=== PATIENT | female | born 1980 | race Caucasian/White ===

== ENCOUNTER 2020-10-11 23:32 | Emergency (ER) | payer MEDICAID ==
[~2020-10-11] VITALS: Ht 160 cm; Wt 47.7 kg
[2020-10-11] MEDS ORDERED: fentaNYL/PF 50MCG/1 ML 2ML syringe IV ONE (23:50)
[2020-10-11] MEDS ORDERED: ondansetron/PF 4mg/2ml inj IV ONE (23:50)
[2020-10-11] MEDS ORDERED: iohexol 300mg/ml 100ml inj. ONE (23:51)
[2020-10-11 23:56] LABS: BASOPHILS # (AUTO) 0.1 X10'3 (0-0.2); BASOPHILS % (AUTO) 0.6 % (0-1); EOSINOPHILS # (AUTO) 0.2 X10'3 (0-0.9); EOSINOPHILS % (AUTO) 1.4 % (0-6); HEMATOCRIT 39.4 % (35.0-45.0); HEMOGLOBIN 13.3 g/dl (12.0-16.0); LYMPHOCYTES # (AUTO) 2.1 X10'3 (1.1-4.8); LYMPHOCYTES % (AUTO) 15.4 % (21-51); MEAN CORPUSCULAR HEMOGLOBIN 30.3 PG (27.0-31.0); MEAN CORPUSCULAR HGB CONC 33.7 g/dL (33.0-36.5); MEAN CORPUSCULAR VOLUME 90.1 FL (78-98); MEAN PLATELET VOLUME 7.7 FL (7.4-10.4); MONOCYTES % (AUTO) 7.7 % (2-12); NEUTROPHILS % (AUTO) 74.9 % (42-75); PLATELET COUNT 247 X10'3 (140-440); RED BLOOD COUNT 4.37 X10'6 (4.20-5.60); RED CELL DISTRIBUTION WIDTH 12.8 % (11.5-14.5); WHITE BLOOD COUNT 13.4 X10'3 (4.5-11.0)
[2020-10-12 00:01] LABS: HCG SERUM QL NEGATIVE
[2020-10-12 00:07] LABS: ALANINE AMINOTRANSFERASE 19 U/L (12-78); ALBUMIN 3.8 G/DL (3.4-5.0); ALBUMIN/GLOBULIN RATIO 1.2 (1.1-1.5); ALKALINE PHOSPHATASE 78 IU/L (46-116); ANION GAP 10 (8-16); ASPARTATE AMINO TRANSFERASE 15 U/L (10-37); BILIRUBIN,TOTAL 1.1 MG/DL (0.1-1.0); BLOOD UREA NITROGEN 14 MG/DL (7-18); BUN/CREATININE RATIO 21.5 (6.6-38.0); CALCIUM 8.9 MG/DL (8.5-10.1); CHLORIDE 103 MMOL/L (99-107); CREATININE 0.65 MG/DL (0.40-0.90); ETHANOL < 0.010 GM/DL (0.0-0.010); GLUCOSE 116 MG/DL (70-104); POTASSIUM 3.6 MMOL/L (3.5-5.1); SODIUM 138 MMOL/L (135-145); eGFR > 90 ML/MIN
--- NOTE | 2020-10-12 00:13 | NUR ---
TO CT XRAYS COMPLETED
[2020-10-12] MEDS ORDERED: morphine 4 MG/ML inj SYRINge IV ONE (00:45)
[2020-10-12] MEDS ORDERED: ketorolac trometh. 30mg/ml inj. IV ONE (01:15)
[2020-10-12] MEDS ORDERED: HYDR-3965 PO (01:29)
[2020-10-12] MEDS ORDERED: MELO-100 PO (01:29)
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
--- NOTE | 2020-10-12 02:19 | NUR ---
[facility] present in room interviewing pt and her boyfriend. they state there is no case number, but the case is "[id number]."
[2020-10-12 03:14] VITALS: BP 102/59
== END 2020-10-12 03:15 | disposition home or self-care (01) ==
LOC: ER 23:33
DX: S82.102A Unspecified fracture of upper end of left tibia, initial encounter for closed fracture (principal); S92.315A Nondisplaced fracture of first metatarsal bone, left foot, initial encounter for closed fracture; M79.602 Pain in left arm; M25.572 Pain in left ankle and joints of left foot; M25.562 Pain in left knee; Z88.1 Allergy status to other antibiotic agents; Z79.899 Other long term (current) drug therapy; X58.XXXA Exposure to other specified factors, initial encounter; Y93.89 Activity, other specified; Y92.89 Other specified places as the place of occurrence of the external cause; Y99.8 Other external cause status
CPT/HCPCS: 29505; 36415; 70450; 70486; 71045; 71260; 72125; 73590; 73620; 74177; 80053; 80320; 84703; 85025; 85610; 86885; 86900; 86901; 93005; 96374; 96375; 99285; J1885; J2270; J2405; J3010; Q9967

== ENCOUNTER 2022-10-04 19:09 | Emergency (ER) | payer MEDICAID ==
[~2022-10-04] VITALS: Ht 160 cm; Wt 110.0 kg
[~2022-10-04 19:09] MED LIST: MELO-100 PO
[2022-10-04 19:41] VITALS: BP 126/84
== END 2022-10-05 02:30 | disposition left against medical advice (07) ==
LOC: ER 19:09
DX: M25.562 Pain in left knee (principal); Z53.21 Procedure and treatment not carried out due to patient leaving prior to being seen by health care provider
CPT/HCPCS: 73564

== ENCOUNTER 2024-07-18 10:16 | Emergency (ER) | payer MEDICAID ==
[~2024-07-18] VITALS: Ht 162.6 cm; Wt 44.0 kg
[2024-07-18 11:30] LABS: BASOPHILS % (AUTO) 0.3 % (0-1); EOSINOPHILS % (AUTO) 0.4 % (0-6); HEMATOCRIT 37.5 % (35.0-45.0); HEMOGLOBIN 12.5 g/dl (12.0-16.0); LYMPHOCYTES % (AUTO) 17.1 % (21-51); MEAN CORPUSCULAR HEMOGLOBIN 30.3 PG (27.0-31.0); MEAN CORPUSCULAR HGB CONC 33.3 g/dL (33.0-36.5); MEAN CORPUSCULAR VOLUME 90.9 FL (78-98); MONOCYTES # (AUTO) 0.6 X10'3 (0-0.9); NEUTROPHILS # (AUTO) 8.9 X10'3 (1.8-7.7); NEUTROPHILS % (AUTO) 77.2 % (42-75); PLATELET COUNT 283 X10'3 (140-440); RED BLOOD COUNT 4.13 X10'6 (4.20-5.60); RED CELL DISTRIBUTION WIDTH 12.7 % (11.5-14.5); WHITE BLOOD COUNT 11.6 X10'3 (4.5-11.0)
[2024-07-18 11:58] VITALS: O2SAT 100
[2024-07-18] MEDS: RHO(D) immune globulin 1,500 units (300 MCG) syringe IM ONE (15:37)
[2024-07-18 15:41] VITALS: BP 112/68; PULSE 64; RESP 16; TEMP 97.8
== END 2024-07-18 15:43 | disposition home or self-care (01) ==
LOC: ER 10:17
DX: O03.4 Incomplete spontaneous abortion without complication (principal); R10.2 Pelvic and perineal pain; Z3A.11 11 weeks gestation of pregnancy; Z88.1 Allergy status to other antibiotic agents; Z88.8 Allergy status to other drugs, medicaments and biological substances
CPT/HCPCS: 36415; 76801; 76817; 84702; 85025; 86900; 86901; 96372; 99285; J2790; 76830